=== PATIENT | female | born 1985 | race Caucasian/White ===

== ENCOUNTER → 2016-10-06 | Outpatient (CLI) | payer BC ==
[2016-10-06 13:23] LABS: CH 32.6; CHCM 34.6; HCT 36.2 % (34.0-46.0); HDW 2.68; HGB 12.9 gm/dL (11.4-16.0); MCH 33.8 pg (25.0-35.0); MCHC 35.7 g/dL (31.0-37.0); MCV 94.9 fL (80.0-100.0); Mean Platelet Volume 7.2; RBC 3.81 m/uL (3.80-5.40); RDW 12.9 % (11.5-15.5); WBC 9.8 k/uL (3.8-10.6)
== END | disposition home or self-care (01) ==
LOC: LABWHC1 11:55
PROVIDERS: ATTEND Obstetrics & Gynecology
DX: Z34.02 Encounter for supervision of normal first pregnancy, second trimester (principal); Z3A.00 Weeks of gestation of pregnancy not specified
CPT/HCPCS: 36415; 82950; 85027

== ENCOUNTER → 2016-10-13 | Outpatient (CLI) | payer BC ==
[2016-10-13 12:17] LABS: Glucose 3 Hour, Gest 47 mg/dL
== END | disposition home or self-care (01) ==
LOC: LABWHC1 07:51
PROVIDERS: ATTEND Obstetrics & Gynecology
DX: O24.419 Gestational diabetes mellitus in pregnancy, unspecified control (principal); Z3A.00 Weeks of gestation of pregnancy not specified
CPT/HCPCS: 36415; 82951; 82952

== ENCOUNTER 2016-12-27 06:00 | Inpatient (IN) | payer BC ==
[2016-12-27] MEDS ORDERED: BUTORPHANOL 1 MG/ML 1 ML VIAL IV PRN (16:35)
[2016-12-27] MEDS ORDERED: DINOPROSTONE 10 MG INSERT.ER VAGINAL ONE (16:35)
[2016-12-27 16:58] VITALS: BMI 30.5
--- NOTE | 2016-12-27 17:36 | P.HPOB ---
History of Present Illness H&P Date: 12/27/16 Chief Complaint: Intrauterine growth restriction This patient is a pleasant 31-year-old 1 para 0 female estimated date of confinement 01/18/2017 estimated gestational age 37-0/7 weeks who presents to labor and delivery for induction of labor secondary to intrauterine growth restriction. Patient's history is such that she had a 12 week ultrasound that confirmed her due date. Patient had a 35 week ultrasound that showed severe growth restriction. Patient was referred to maternal- medicine and they recommended delivery at 37 weeks. Patient was a heavy tobacco user prior to in the first part of her approximately 2 packs per day but did reduce her use significantly. Apparently she did quit about 1 month ago. care otherwise has been uncomplicated. Review of Systems Constitutional: Denies chills, Denies fever Ears, nose, mouth and throat: Denies headache, Denies sore throat Cardiovascular: Denies chest pain, Denies shortness of breath Respiratory: Denies cough Gastrointestinal: Reports heartburn Genitourinary: Reports Menstruation: Reports amenorrhea Past Medical History Past Medical History: No Reported History Additional Past Medical History / Comment(s): Ovarian Cyst, Fibroid Tumor - Uterus History of Any Multi-Drug Resistant Organisms: None Reported Past Surgical History: Orthopedic Surgery Additional Past Surgical History / Comment(s): Left Knee Past Anesthesia/Blood Transfusion Reactions: No Reported Reaction Past Psychological History: Anxiety Smoking Status: Former smoker Past Alcohol Use History: None Reported, Rare Past Drug Use History: None Reported - Past Family History Father Family Medical History: No Reported History Medications and Allergies Home Medications Medication Instructions Recorded Confirmed Type Pnv No.95/Ferrous Fum/Folic AC 1 each PO DAILY 12/26/16 12/27/16 History [ Multivitamin Tablet] Allergies Allergy/AdvReac Type Severity Reaction Status Date / Time No Known Allergies Allergy Verified 12/27/16 16:35 Exam - Vital Signs Vital signs: Vital Signs Temp Pulse Resp BP Pulse Ox 12/27/16 16:35 97.6 F 93 16 139/81 97 Intake and Output 12/27/16 12/27/16 12/27/16 06:59 14:59 22:59 Other: Weight 75.75 kg Patient Weight 12/28/16 06:59 Weight 75.75 kg - OBG Physical Exam Abdomen: bowel sounds normal, no diffuse tenderness, no bruit present, no guarding noted, no hepatomegaly, no splenomegaly, no mass Vulva: both: normal Vagina: normal moisture, no discharge Cervix: Cervix is 1 cm and uneffaced. Uterus: enlarged (Fundal height is 36 cm) Results blood work is A positive, rubella immune, RPR nonreactive, HIV nonreactive, hepatitis B is negative, ultrasounds as above. Group B strep was positive. Glucola was abnormal with a normal three-hour gtt. Assessment and Plan (1) IUGR (intrauterine growth restriction) affecting care of mother Narrative/Plan: This patient is a pleasant 31-year-old 1 para 0 female 37-0/7 weeks gestation with severe intrauterine growth restriction. Recommendations per maternal medicine is to deliver at this time. Etiology is unknown all of the patient does have a history of heavy tobacco use. Plan is Cervidil induction of labor and anticipate vaginal delivery. Status: Acute (2) Group B streptococcal carriage complicating Status: Acute
[2016-12-28] MEDS ORDERED: TERBUTALINE 1 MG/ML VIAL SQ PRN (05:06)
[2016-12-28] MEDS ORDERED: OXYTOCIN 10 UNIT/ML 1 ML VIAL IM PRN (05:06)
[2016-12-28] MEDS ORDERED: CARBOPROST TROMETHAMINE 250 MCG/ML 1 ML AMP IM PRN (05:06)
[2016-12-28] MEDS ORDERED: AMPICILLIN 2,000 MG in SODIUM CHLORIDE 0.9% 100 ML IVPB STA (05:06)
[2016-12-28] MEDS ORDERED: LACTATED RINGERS 1,000 ML IV SCH (05:06)
[2016-12-28] MEDS ORDERED: METHYLERGONOVINE 0.2 MG/ML 1 ML AMP IM PRN (05:06)
[2016-12-28] MEDS ORDERED: LIDOCAINE 1% (PF) 10 MG/ML (30 ML SDV) SQ PRN (05:06)
[2016-12-28] MEDS ORDERED: OXYTOCIN 20 UNITS/1000 ML NS 1,000 ML IV SCH ×2 (05:06→13:15)
[2016-12-28 06:00] LABS: Basophils # (A) 0.1 k/uL (0-0.2); Basophils % (A) 0 %; CHCM 35.2; Eosinophils # (A) 0.2 k/uL (0-0.7); Eosinophils % (A) 2 %; HCT 40.9 % (34.0-46.0); HDW 2.67; HGB 13.7 gm/dL (11.4-16.0); Luc # (Auto) 0.14; Luc % (Auto) 1; Lymphocytes % (A) 28 %; MCH 32.5 pg (25.0-35.0); MCHC 33.4 g/dL (31.0-37.0); MCV 97.4 fL (80.0-100.0); Monocytes # (A) 0.6 k/uL (0-1.0); Monocytes % (A) 6 %; Neutrophils # (A) 6.7 k/uL (1.3-7.7); Neutrophils % (A) 63 %; RDW 14.1 % (11.5-15.5); WBC 10.8 k/uL (3.8-10.6)
--- NOTE | 2016-12-28 06:13 | P.PN ---
Progress Note - Text Patient's heart tones are reassuring. She is 2 cm dilated, artificial rupture membranes shows bloody clear fluid. Patient did have a low-lying placenta throughout the . Plan at this time is as long as the bleeding is not significant and heart tones are reassuring we'll continue with induction of labor. Patient understands if she has significant bleeding or concerns for heart tones were proceed with for delivery.
[2016-12-28] MEDS: AMPICILLIN 1,000 MG in SODIUM CHLORIDE 0.9% 50 ML IVPB SCH ×2 (09:51→20:40)
[2016-12-28] MEDS ORDERED: ceFAZolin 2 GM in SODIUM CHLORIDE 0.9% 100 ML IVPB ONE (12:14)
[2016-12-28] MEDS ORDERED: CITRIC ACID-SODIUM CITRATE 15 ML CUP PO ONE (12:14)
[2016-12-28] MEDS ORDERED: MORPHINE SULFATE (PF) 0.3 MG/0.3 ML SYR ONE (12:30)
[2016-12-28] MEDS ORDERED: OXYTOCIN 10 UNIT/ML 1 ML VIAL ONE (12:30)
[2016-12-28] MEDS ORDERED: ONDANSETRON 4 MG/2 ML VIAL ONE (12:30)
[2016-12-28] MEDS ORDERED: NALBUPHINE 10 MG/ML AMPUL ONE (12:30)
[2016-12-28] MEDS ORDERED: KETOROLAC 30 MG/ML 1 ML VIAL ONE (12:30)
[2016-12-28] MEDS ORDERED: MORPHINE SULFATE 4 MG/ML SYRINGE IVP PRN (13:06)
[2016-12-28] MEDS ORDERED: KETOROLAC 30 MG/ML 1 ML VIAL IVP PRN (13:06)
[2016-12-28] MEDS ORDERED: NALOXONE 0.4 MG/ML 1 ML VIAL IV PRN ×2 (13:06→13:12)
[2016-12-28] MEDS ORDERED: ONDANSETRON 4 MG/2 ML VIAL IVP PRN ×2 (13:06→13:12)
[2016-12-28] MEDS ORDERED: diphenhydrAMINE 50 MG/ML 1 ML VIAL IVP PRN ×2 (13:06→13:12)
[2016-12-28] MEDS ORDERED: Acetaminophen-Codeine 300-30mg TAB PO PRN (13:12)
[2016-12-28] MEDS ORDERED: diphenhydrAMINE 25 MG CAP PO PRN (13:12)
[2016-12-28] MEDS ORDERED: SIMETHICONE 80 MG CHEWABLE PO PRN (13:12)
[2016-12-28] MEDS ORDERED: ACETAMINOPHEN TAB 325 MG TAB PO PRN (13:12)
[2016-12-28] MEDS ORDERED: ZOLPIDEM 5 MG TAB PO PRN (13:12)
[2016-12-28] MEDS ORDERED: METOCLOPRAMIDE 5 MG/ML 2 ML VIAL IVP PRN (13:12)
--- NOTE | 2016-12-28 13:22 | P.OP ---
Date of Procedure: 12/28/16 Preoperative Diagnosis: #1: 37-0/7 weeks . #2: Intrauterine growth restriction. #3: Vaginal bleeding. #4: Gestational hypertension. #5: Failure to progress. Postoperative Diagnosis: #1: Same. #2: Low-lying anterior placenta Procedure(s) Performed: Primary low transverse section. Anesthesia: spinal Surgeon: Dany Spring Professor Of Political Science #1: Tera Jimenez Estimated Blood Loss (ml): 600 Pathology: other (Placenta) Condition: stable Disposition: floor Indications for Procedure: Please see dictated H&P for intimate details of this patient's admission. Brief summary this pleasant 31-year-old 1 para 0 female 37-0/7 weeks gestation who was admitted to labor and delivery last evening for two-stage induction of labor secondary to intrauterine growth restriction. Patient had a Cervidil placed this morning she is 2 cm dilated. Rupture of membranes showed bloody clear fluid. heart tones are reassuring. Patient is induced with Pitocin per protocol. Labor does not progress however the patient does develop continued bleeding and elevated blood pressures. This time I recommend proceed with delivery. Patient I did discuss the surgery and risks including risks of infection, bleeding, possible injury bowel, bladder, vessels, and other organs. Patient seems risks DVT and pulmonary embolism. All patient's questions are answered written consent is obtained. Operative Findings: This is a viable male Apgars are 9 and 9 delivery time was 1245 hrs. Infant has spontaneous respirations and good cry and grossly appeared normal did appear to intrauterine growth restricted. Was no evidence of a placenta previa however the placenta did extend low near the cervical opening. Description of Procedure: This patient has a Katz catheter placed to straight drain. She subsequently taken to the operating room where she sat up and spinal anesthetic is administered without incident. With an adequate level of anesthesia she has abdominal vaginal prep. Draped is placed. Scalpels then taken and a Pfannenstiel skin incision is then made. A second scalpel is taken down the fascia and the fascia scored with the scalpel. Fascial incision is then extended bilaterally using the German scissors. Fascia is dissected off the rectus muscles sharply. Rectus muscles are peritoneum identified and entered sharply. Peritoneal incision extended superior and inferior without difficulty. Bladder blade is placed. Bladder peritoneum was taken off the lower uterine segment sharply. Scalpels then taken and a low transverse uterine incision is made. Using a hemostat I gently into the uterine cavity and there is a placenta anteriorly. I do go through the placenta and finding infant's vertex. Vertex is then gently delivered through the incision with fundal pressure. Mouth and nares are bulb suctioned. There is a loop of cord near the 's neck is not a nuchal cord. We then deliver the rest this 's body and is a vigorous viable male Apgars are 9 and 9 delivery time is 1245 hrs. After delivery of the the umbilical cord is doubly clamped and cut appears to be trivascular. Placenta is then manually extracted. Does appear quite ready. Placenta is also small. This is sent off to pathology. With this done the uterus is then externalized and uterine incision demarcated with Ghosh clamps. Uterine incision closed in 0 Vicryl running locked fashion 2 layers. Excellent hemostasis is noted. Bladder peritoneum was then closed using a 3-0 Vicryl. Excess fluid is removed from the abdomen and pelvis. Uterus placed back into the abdomen. Parietal peritoneum was then closed using 0 Vicryl running fashion. Fascial incision is then reapproximated in 0 Vicryl interrupted fashion. The rectus muscles were reapproximated using 0 Vicryl interrupted fashion. Subcutaneous tissues reapproximated using a 3-0 Vicryl. Skin is reapproximated using naomi. Sterile dressing is applied. All counts are correct 3. There are no complications. Others taken to her birthing suite and subsequently taken to the nursery for evaluation.
[2016-12-28 14:02] LABS: Basophils % (A) 0 %; CH 33.8; CHCM 34.7; Eosinophils # (A) 0.1 k/uL (0-0.7); Eosinophils % (A) 1 %; HCT 36.5 % (34.0-46.0); HDW 2.64; HGB 11.9 gm/dL (11.4-16.0); Luc # (Auto) 0.06; Luc % (Auto) 1; Lymphocytes # (A) 1.5 k/uL (1.0-4.8); Lymphocytes % (A) 17 %; MCHC 32.7 g/dL (31.0-37.0); Mean Platelet Volume 9.2; Monocytes # (A) 0.4 k/uL (0-1.0); Monocytes % (A) 5 %; Neutrophils # (A) 6.8 k/uL (1.3-7.7); Neutrophils % (A) 76 %; RBC 3.73 m/uL (3.80-5.40); RDW 14.1 % (11.5-15.5); WBC 8.9 k/uL (3.8-10.6)
[2016-12-28 14:16] LABS: Total Bilirubin 0.2 mg/dL (0.2-1.3); Total Protein 5.1 g/dL (6.3-8.2)
[2016-12-28] MEDS: LACTATED RINGERS 1,000 ML IV SCH ×2 (16:30→21:56)
[2016-12-28] MEDS: MORPHINE SULFATE 4 MG/ML SYRINGE IVP PRN ×2 (16:30→23:08)
[2016-12-28] MEDS ORDERED: LABETALOL 100 MG TAB PO PRN (16:37)
[2016-12-28] MEDS: SENNOSIDES-DOCUSATE SODIUM 1 EACH TAB PO SCH (20:41)
[2016-12-28] MEDS: ceFAZolin 2 GM in SODIUM CHLORIDE 0.9% 100 ML IVPB SCH (20:41)
[2016-12-29] MEDS: ceFAZolin 2 GM in SODIUM CHLORIDE 0.9% 100 ML IVPB SCH (03:22)
--- NOTE | 2016-12-29 06:10 | P.PNOBGPC ---
Subjective - Subjective Patient reports: Reports appetite normal, Reports voiding normally, Reports pain well controlled, Reports ambulating normally : doing well Objective - Vital Signs Latest vital signs: Vital Signs Temp Pulse Pulse Resp BP Pulse Ox 12/29/16 04:00 98.4 F 70 16 146/85 12/29/16 00:00 98.3 F 90 18 130/75 12/28/16 20:00 98.1 F 90 18 153/92 12/28/16 18:06 99 12/28/16 15:14 97.3 F L 76 18 147/76 99 12/28/16 14:39 84 16 135/70 12/28/16 14:14 80 16 146/74 97 12/28/16 14:06 97 12/28/16 13:58 83 16 133/78 99 12/28/16 13:41 97 16 132/77 98 12/28/16 13:24 98 16 141/79 97 12/28/16 13:09 96.7 F L 88 18 135/76 99 12/28/16 13:06 99 Intake and Output 12/28/16 12/28/16 12/29/16 14:59 22:59 06:59 Intake Total 30 Output Total 1200 2350 Balance 30 -1200 -2350 Intake: Oral 30 Output: Urine 1200 2350 Other: # Voids 2 - Exam Lungs: bilateral: normal Chest: Normal S1, Normal S2 Extremities: Present: normal Abdomen: Present: normal appearance, soft. Absent: distention, tenderness Incision: Present: normal, dry, intact Uterus: Present: normal, firm - Labs Labs: Abnormal Lab Results - Last 24 Hours (Table) 12/28/16 12/28/16 Range/Units 13:50 13:50 RBC 3.73 L (3.80-5.40) m/uL Total Protein 5.1 L (6.3-8.2) g/dL Albumin 2.6 L (3.5-5.0) g/dL Assessment and Plan (1) IUGR (intrauterine growth restriction) affecting care of mother Narrative/Plan: Post operative day #1. Patient is resting without new complaints. Vital signs are stable. Blood pressures are mildly elevated but nothing requiring treatment. Uterus is firm nontender she's having normal lochia. Her incision is intact and dry. I did repeat preeclampsia blood work yesterday and it was normal. My impression is that this is a normal postoperative course. She does appear to have some mild gestational hypertension which has not requiring treatment at this time. Plan at this time is to check a CBC, advanced to regular diet, allow the patient to shower, and continue routine postoperative care. Current Visit: Yes Status: Acute Code(s): O36.5990 - MATERN CARE FOR OTH OR SUSP POOR FETL GRTH, UNSP TRI, UNSP SNOMED Code(s): 272732200 (2) Group B streptococcal carriage complicating Current Visit: Yes Status: Acute Code(s): O99.820 - STREPTOCOCCUS B CARRIER STATE COMPLICATING SNOMED Code(s): 888147578419724
[2016-12-29] MEDS: IBUPROFEN 600 MG TAB PO PRN ×2 (07:52→18:46)
[2016-12-29] MEDS: SENNOSIDES-DOCUSATE SODIUM 1 EACH TAB PO SCH ×2 (07:53→19:59)
--- NOTE | 2016-12-29 08:00 | P.PN ---
Progress Note - Text Date: 12/29/2016 Time: 706 The patient is status post section Vital signs stable VAS: 0-10 Patient has no complaints of pain. The patient incurred some minimal itching yesterday, this itching is now subsiding. Pain meds to be managed by service.
[2016-12-29 08:30] LABS: Basophils % (A) 0 %; CH 33.1; CHCM 33.4; Eosinophils # (A) 0.2 k/uL (0-0.7); Eosinophils % (A) 2 %; HCT 36.3 % (34.0-46.0); HDW 2.63; HGB 12.1 gm/dL (11.4-16.0); Luc % (Auto) 1; Lymphocytes # (A) 1.3 k/uL (1.0-4.8); Lymphocytes % (A) 14 %; MCH 33.2 pg (25.0-35.0); MCHC 33.3 g/dL (31.0-37.0); MCV 99.7 fL (80.0-100.0); Mean Platelet Volume 7.9; Monocytes # (A) 0.3 k/uL (0-1.0); Monocytes % (A) 3 %; Neutrophils # (A) 7.9 k/uL (1.3-7.7); Neutrophils % (A) 80 %; RBC 3.64 m/uL (3.80-5.40); RDW 13.6 % (11.5-15.5); WBC 9.8 k/uL (3.8-10.6); WBC (Perox) 9.83
[2016-12-29] MEDS: Acetaminophen-Codeine 300-30mg TAB PO PRN ×2 (14:10→20:46)
[2016-12-29] MEDS: LACTATED RINGERS 1,000 ML IV SCH ×2 (20:28→20:29)
[2016-12-30] MEDS: Acetaminophen-Codeine 300-30mg TAB PO PRN ×2 (04:09→20:50)
--- NOTE | 2016-12-30 06:08 | P.PNOBGPC ---
Subjective - Subjective Patient reports: Reports appetite normal, Reports voiding normally, Reports pain well controlled, Reports ambulating normally : doing well Objective - Vital Signs Latest vital signs: Vital Signs Temp Pulse Resp BP Pulse Ox 12/30/16 00:00 98.5 F 90 18 145/78 100 12/29/16 16:00 97.7 F 84 18 149/77 12/29/16 12:00 98.6 F 90 18 149/82 12/29/16 08:00 98.3 F 94 18 128/74 - Exam Lungs: bilateral: normal Chest: Normal S1, Normal S2 Extremities: Present: normal Abdomen: Present: normal appearance, soft. Absent: distention, tenderness Incision: Present: normal, dry, intact Uterus: Present: normal, firm - Labs Labs: Abnormal Lab Results - Last 24 Hours (Table) 12/29/16 Range/Units 08:12 RBC 3.64 L (3.80-5.40) m/uL Neutrophils # 7.9 H (1.3-7.7) k/uL Assessment and Plan (1) IUGR (intrauterine growth restriction) affecting care of mother Narrative/Plan: Post operative day #2. Patient is resting without new complaints. Blood pressures 140s over 70s. Uterus is firm nontender her incision is intact and dry. Patient's having normal lochia. My impression is this is a normal post operative course. Blood pressures remained mildly elevated but not at a level that need to be treated. I'm going to continue to watch her today most likely discharge home tomorrow. Current Visit: Yes Status: Acute Code(s): O36.5990 - MATERN CARE FOR OTH OR SUSP POOR FETL GRTH, UNSP TRI, UNSP SNOMED Code(s): 334540649 (2) Group B streptococcal carriage complicating Current Visit: Yes Status: Acute Code(s): O99.820 - STREPTOCOCCUS B CARRIER STATE COMPLICATING SNOMED Code(s): 250232621832962
[2016-12-30] MEDS: IBUPROFEN 600 MG TAB PO PRN ×3 (08:22→22:30)
[2016-12-30] MEDS: SENNOSIDES-DOCUSATE SODIUM 1 EACH TAB PO SCH ×2 (08:26→20:49)
[2016-12-30 09:06] VITALS: RESP 16
[2016-12-31] MEDS: IBUPROFEN 600 MG TAB PO PRN (03:58)
--- NOTE | 2016-12-31 07:02 | P.PNOBGPC ---
Subjective - Subjective Patient reports: Reports appetite normal, Reports voiding normally, Reports pain well controlled, Reports ambulating normally : doing well Objective - Vital Signs Latest vital signs: Vital Signs Temp Pulse Pulse Resp BP 12/31/16 00:00 98.3 F 97 16 156/85 12/30/16 16:00 98.2 F 94 16 146/81 12/30/16 08:00 98.7 F 99 108 H 16 144/76 - Exam Lungs: bilateral: normal Chest: Normal S1, Normal S2 Extremities: Present: normal Abdomen: Present: normal appearance, soft. Absent: distention, tenderness Incision: Present: normal, dry, intact Uterus: Present: normal, firm Assessment and Plan (1) IUGR (intrauterine growth restriction) affecting care of mother Narrative/Plan: Post operative day #3. Patient is resting without new complaints. Blood pressures running 140s over 70s occasionally 150 over 80s. Patient does not have any symptomatology including headaches etc. Patient is tolerating regular diet, urinating, ambulating without difficulty. My impression is a normal postoperative course. She does have a mild gestational hypertension which is asymptomatic at this time and does not require treatment. Plan is to discharge home today and I'll see her back within 1 week for repeat blood pressure and incision check. Patient is given instructions as to reasons to call. Current Visit: Yes Status: Acute Code(s): O36.5990 - MATERN CARE FOR OTH OR SUSP POOR FETL GRTH, UNSP TRI, UNSP SNOMED Code(s): 489718932 (2) Group B streptococcal carriage complicating Current Visit: Yes Status: Acute Code(s): O99.820 - STREPTOCOCCUS B CARRIER STATE COMPLICATING SNOMED Code(s): 749212258189584
--- NOTE | 2016-12-31 07:05 | P.DS ---
Providers Date of admission: 12/27/16 16:33 Expected date of discharge: 12/31/16 Attending physician: Dany Spring Primary care physician: Stated None - Discharge Diagnosis(es) (1) IUGR (intrauterine growth restriction) affecting care of mother Current Visit: Yes Status: Acute (2) Group B streptococcal carriage complicating Current Visit: Yes Status: Acute Hospital Course: Please see dictated H&P for intimate details of this patient's admission. Brief summary this is a pleasant 31-year-old 1 para 0 female admitted to labor and delivery at 37 weeks for induction secondary to severe IUGR. Patient is admitted and subsequent undergoes a primary low transverse section for failed progress, vaginal bleeding, and hypertension. Patient did have some elevated blood pressures and preeclampsia evaluation was negative. She never did require any medications however continue to have blood pressures 140 150/70 to 80s. On postoperative 3 patient's felt be stable for discharge home follow up with me in 1 week. Procedures: Induction of labor and primary low transverse section. Patient Condition at Discharge: Good Plan - Discharge Summary New Discharge Prescriptions: New Acetaminophen-Codeine 300-30mg [Tylenol w/codeine #3] 1 - 2 each PO Q4HR PRN #30 tab PRN Reason: Mild Pain Ibuprofen [Motrin] 600 mg PO Q6HR PRN #40 tab PRN Reason: Mild Pain Or Fever >= 100.5 No Action Pnv No.95/Ferrous Fum/Folic AC [ Multivitamin Tablet] 1 each PO DAILY Discharge Medication List Pnv No.95/Ferrous Fum/Folic AC [ Multivitamin Tablet] 1 each PO DAILY [History] Acetaminophen-Codeine 300-30mg [Tylenol w/codeine #3] 1 - 2 each PO Q4HR PRN # 30 tab 12/30/16 [Rx] Ibuprofen [Motrin] 600 mg PO Q6HR PRN #40 tab 12/30/16 [Rx] Follow up Appointment(s)/Referral(s): Dany Spring MD [STAFF PHYSICIAN] - 01/05/17 8:45 am (Patient also has a post visit on February 09 at 9:15 AM.) Patient Instructions/Handouts: (DC) Activity/Diet/Wound Care/Special Instructions: No heavy lifting or strenuous activity for 6 weeks. No intercourse or anything per vagina for 6 weeks. Please call if any fever, chills, excessive vaginal bleeding, and/or abdominal pain. Discharge Disposition: HOME SELF-CARE
[2016-12-31] MEDS: SENNOSIDES-DOCUSATE SODIUM 1 EACH TAB PO SCH (08:14)
[2016-12-31] MEDS: Acetaminophen-Codeine 300-30mg TAB PO PRN (08:18)
[2016-12-31 09:16] VITALS: BP 155/97; PULSE 103; TEMP 97.2
== END 2016-12-31 13:15 | disposition home or self-care (01) | DRG 765 ==
LOC: 4FBP 16:33
PROVIDERS: ADMIT Obstetrics & Gynecology; ATTEND Obstetrics & Gynecology
PROC: 3E0P7GC Introduction of Other Therapeutic Substance into Female Reproductive, Via Natural or Artificial Opening (ICD-10-PCS; principal; 2016-12-27)
PROC: 10907ZC Drainage of Amniotic Fluid, Therapeutic from Products of Conception, Via Natural or Artificial Opening (ICD-10-PCS; principal; 2016-12-27)
PROC: 3E033VJ Introduction of Other Hormone into Peripheral Vein, Percutaneous Approach (ICD-10-PCS; principal; 2016-12-27)
PROC: 10D00Z1 Extraction of Products of Conception, Low, Open Approach (ICD-10-PCS; 2016-12-28)
DX: O36.5930 Maternal care for other known or suspected poor fetal growth, third trimester, not applicable or unspecified (principal); O44.43 Low lying placenta NOS or without hemorrhage, third trimester; O99.824 Streptococcus B carrier state complicating childbirth; Z37.0 Single live birth; Z87.891 Personal history of nicotine dependence; Z3A.37 37 weeks gestation of pregnancy; O62.2 Other uterine inertia; R03.0 Elevated blood-pressure reading, without diagnosis of hypertension
CPT/HCPCS: 59025; 80076; 81001; 82565; 83615; 84450; 84460; 84520; 84550; 85025; 85610; 85730; 86850; 86900; 86901; 88307

== ENCOUNTER → 2020-01-02 | Outpatient (CLI) | payer OTHER ==
--- NOTE | 2020-01-02 12:39 | XR ---
EXAMINATION TYPE: XR facial bones complete DATE OF EXAM: 01/02/2020 COMPARISON: NONE HISTORY: Pain TECHNIQUE: 3 views submitted FINDINGS: Osseous structures intact. Mild mucosal thickening in the paranasal sinuses. No air-fluid l evels. No acute displaced fracture. IMPRESSION: 1. Mild chronic sinusitis with no acute displaced fracture. If symptoms persist consider CT scan.
== END | disposition home or self-care (01) ==
LOC: RADXRMAIN 12:17
PROVIDERS: ATTEND Internal Medicine
DX: J32.9 Chronic sinusitis, unspecified (principal)
CPT/HCPCS: 70150

== ENCOUNTER 2021-02-17 11:18 | Emergency (ER) | payer OTHER ==
[2021-02-17 12:16] VITALS: TEMP 99.2
--- NOTE | 2021-02-17 14:00 | ED ---
General Adult HPI - General Chief complaint: Recheck/Abnormal Lab/Rx Stated complaint: High BP Time Seen by Provider: 02/17/21 13:00 Source: patient, RN notes reviewed, old records reviewed Mode of arrival: ambulatory Limitations: no limitations - History of Present Illness Initial comments: This is a 36-year-old female who presents today from the primary medical care doctor's office for high blood pressure. Patient states she took today because she had some tingling in her left hand which is no longer there and it was elevated and she took a few more times and continued to be elevated so she went to the primary medical care doctor's office. She states they took her blood pressure and sent her into the emergency department but she does not know what her pressure was there. Patient denies any chest pain shortness of breath or palpitations. Patient states she did feel little tired this morning and a little lightheaded but those resolved. Patient also stated she had a headache that was slight this morning she took Aleve and now it's gone. - Related Data Previous Rx's Medication Instructions Recorded amLODIPine [Norvasc] 2.5 mg PO DAILY #10 tablet 02/17/21 Allergies Allergy/AdvReac Type Severity Reaction Status Date / Time No Known Allergies Allergy Verified 02/17/21 14:30 Review of Systems ROS Statement: Those systems with pertinent positive or pertinent negative responses have been documented in the HPI. ROS Other: All systems not noted in ROS Statement are negative. Past Medical History Past Medical History: No Reported History Additional Past Medical History / Comment(s): Ovarian Cyst, Fibroid Tumor - Uterus History of Any Multi-Drug Resistant Organisms: None Reported Past Surgical History: Orthopedic Surgery Additional Past Surgical History / Comment(s): Left Knee Past Anesthesia/Blood Transfusion Reactions: No Reported Reaction Past Psychological History: Anxiety Smoking Status: Current every day smoker Past Alcohol Use History: Rare Past Drug Use History: Marijuana - Past Family History Father Family Medical History: No Reported History General Exam - General Exam Comments Initial Comments: GENERAL: Patient is well-developed and well-nourished. Patient is nontoxic and well- hydrated and is in no acute distress. ENT: Neck is soft and supple. No significant lymphadenopathy is noted. Oropharynx is clear. Moist mucous membranes. Neck has full range of motion without eliciting any pain. EYES: The sclera were anicteric and conjunctiva were pink and moist. Extraocular movements were intact and pupils were equal round and reactive to light. Eyelids were unremarkable. PULMONARY: Unlabored respirations. Good breath sounds bilaterally. No audible rales rhonchi or wheezing was noted. CARDIOVASCULAR: There is a regular rate and rhythm without any murmurs gallops or rubs. ABDOMEN: Soft and nontender with normal bowel sounds. No palpable organomegaly was noted. There is no palpable pulsatile mass. SKIN: Skin is clear with no lesions or rashes and otherwise unremarkable. NEUROLOGIC: Patient is alert and oriented x3. Cranial nerves II through XII are grossly intact. Motor and sensory are also intact. Normal speech, volume and content. Symmetrical smile. MUSCULOSKELETAL: Normal extremities with adequate strength and full range of motion. No lower extremity swelling or edema. No calf tenderness. LYMPHATICS: No significant lymphadenopathy is noted PSYCHIATRIC: Normal psychiatric evaluation. Limitations: no limitations Course Vital Signs 02/17/21 02/17/21 02/17/21 12:12 13:45 14:09 Temperature 99.2 F Pulse Rate 89 79 92 Respiratory 20 18 18 Rate Blood Pressure 175/96 139/92 155/107 O2 Sat by Pulse 99 95 96 Oximetry 02/17/21 14:12 Temperature Pulse Rate 76 Respiratory 18 Rate Blood Pressure 133/85 O2 Sat by Pulse 98 Oximetry Medical Decision Making - Medical Decision Making EKG shows normal sinus rhythm at 72 bpm HI interval 256 QRS is 82 QT interval 396 QTC is 433. Patient's EKG shows no ST segment elevation or depression Patient's blood pressure was moderate in the emergency department and it was relatively normal. Patient remained asymptomatic. Patient will follow-up with her primary medical care doctor and document daily blood pressures - Lab Data Result diagrams: 02/17/21 14:06 02/17/21 14:06 Lab Results 02/17/21 02/17/21 02/17/21 Range/Units 14:06 14:06 14:06 WBC 8.5 (3.8-10.6) k/uL RBC 4.78 (3.80-5.40) m/uL Hgb 15.3 (11.4-16.0) gm/dL Hct 42.8 (34.0-46.0) % MCV 89.7 (80.0-100.0) fL MCH 32.1 (25.0-35.0) pg MCHC 35.8 (31.0-37.0) g/dL RDW 13.5 (11.5-15.5) % Plt Count 366 (150-450) k/uL MPV 8.1 Neutrophils % 65 % Lymphocytes % 27 % Monocytes % 4 % Eosinophils % 2 % Basophils % 1 % Neutrophils # 5.6 (1.3-7.7) k/uL Lymphocytes # 2.3 (1.0-4.8) k/uL Monocytes # 0.4 (0-1.0) k/uL Eosinophils # 0.2 (0-0.7) k/uL Basophils # 0.1 (0-0.2) k/uL Sodium 137 (137-145) mmol/L Potassium 4.1 (3.5-5.1) mmol/L Chloride 109 H (98-107) mmol/L Carbon Dioxide 19 L (22-30) mmol/L Anion Gap 9 mmol/L BUN 10 (7-17) mg/dL Creatinine 0.64 (0.52-1.04) mg/dL Est GFR (CKD-EPI)AfAm >90 (>60 ml/min/1.73 sqM) Est GFR (CKD-EPI)NonAf >90 (>60 ml/min/1.73 sqM) Glucose 81 (74-99) mg/dL Calcium 9.3 (8.4-10.2) mg/dL Total Bilirubin 0.5 (0.2-1.3) mg/dL AST 18 (14-36) U/L ALT 10 (4-34) U/L Alkaline Phosphatase 99 (38-126) U/L Troponin I <0.012 (0.000-0.034) ng/mL Total Protein 7.3 (6.3-8.2) g/dL Albumin 4.1 (3.5-5.0) g/dL Disposition Clinical Impression: Hypertensive urgency Disposition: HOME SELF-CARE Condition: Good Instructions (If sedation given, give patient instructions): Hypertension (ED) Additional Instructions: Patient should take her Norvasc if her blood pressure systolically above 160 and oriented times talk is about 90 Prescriptions: amLODIPine [Norvasc] 2.5 mg PO DAILY #10 tablet Is patient prescribed a controlled substance at d/c from ED?: No Referrals: Connie Wheat MD [Primary Care Provider] - 1-2 days Time of Disposition: 15:00
[2021-02-17 14:10] VITALS: RESP 18
[2021-02-17 14:34] LABS: ALT 10 U/L (4-34); AST 18 U/L (14-36); African American GFR (CKD) >90 (>60 ml/min/1.73 sqM); Albumin 4.1 g/dL (3.5-5.0); Alkaline Phosphatase 99 U/L (38-126); Anion Gap 9 mmol/L; Blood Urea Nitrogen 10 mg/dL (7-17); Calcium 9.3 mg/dL (8.4-10.2); Carbon Dioxide 19 mmol/L (22-30); Chloride 109 mmol/L (98-107); Glucose 81 mg/dL (74-99); Non-African American GFR(CKD) >90 (>60 ml/min/1.73 sqM); Potassium 4.1 mmol/L (3.5-5.1); Sodium 137 mmol/L (137-145); Total Bilirubin 0.5 mg/dL (0.2-1.3); Total Protein 7.3 g/dL (6.3-8.2)
[2021-02-17 14:37] LABS: Basophils # (A) 0.1 k/uL (0-0.2); Basophils % (A) 1 %; Eosinophils # (A) 0.2 k/uL (0-0.7); Eosinophils % (A) 2 %; HCT 42.8 % (34.0-46.0); HGB 15.3 gm/dL (11.4-16.0); Lymphocytes # (A) 2.3 k/uL (1.0-4.8); Lymphocytes % (A) 27 %; MCH 32.1 pg (25.0-35.0); MCHC 35.8 g/dL (31.0-37.0); MCV 89.7 fL (80.0-100.0); Mean Platelet Volume 8.1; Monocytes # (A) 0.4 k/uL (0-1.0); Monocytes % (A) 4 %; Neutrophils # (A) 5.6 k/uL (1.3-7.7); Neutrophils % (A) 65 %; Platelet Count 366 k/uL (150-450); RBC 4.78 m/uL (3.80-5.40); RDW 13.5 % (11.5-15.5); WBC 8.5 k/uL (3.8-10.6)
[2021-02-17 15:38] VITALS: BP 127/98; PULSE 85
== END 2021-02-17 15:32 | disposition home or self-care (01) ==
LOC: EC 11:18
DX: I16.0 Hypertensive urgency (principal); F41.9 Anxiety disorder, unspecified; F17.200 Nicotine dependence, unspecified, uncomplicated; F12.90 Cannabis use, unspecified, uncomplicated
CPT/HCPCS: 36415; 80053; 84484; 85025; 93005; 99284

== ENCOUNTER → 2021-02-22 | Outpatient (CLI) | payer OTHER ==
--- NOTE | 2021-02-22 12:49 | XR ---
EXAMINATION TYPE: XR chest 2V DATE OF EXAM: 02/22/2021 COMPARISON: NONE HISTORY: cough TECHNIQUE: Frontal and lateral views of the chest are obtained. FINDINGS: There is no focal air space opacity, pleural effusion, or pneumothorax seen. The cardiac silhouette size is within normal limits. Prominent lung volumes may be seen with COPD. There is bronc hial wall thickening. The osseous structures are intact, slight spinal curvature. IMPRESSION: Correlate for bronchitis
== END | disposition home or self-care (01) ==
LOC: RADXRYALE 11:52
PROVIDERS: ATTEND Internal Medicine
DX: R91.8 Other nonspecific abnormal finding of lung field (principal)
CPT/HCPCS: 71046

== ENCOUNTER → 2022-06-15 | Outpatient (CLI) | payer OTHER ==
--- NOTE | 2022-06-15 11:42 | US ---
EXAMINATION TYPE: US axilla RT DATE OF EXAM: 06/15/2022 COMPARISON: NONE CLINICAL HISTORY: 37-year-old female R22.31 SWELLING, MASS, LUMP. Right axilla palpable lump x 3 days TECHNIQUE: Scanned right axilla at patient's area of concern FINDINGS: Java Software Architect notes: - no mass or enlarged lymph node seen IMPRESSION: No discrete sonographic abnormality or lymphadenopathy in the right axilla. Clinical foll ow-up of any suspicious palpable areas.
== END | disposition home or self-care (01) ==
LOC: RADUSWWP 10:35
PROVIDERS: ATTEND Internal Medicine
DX: R22.31 Localized swelling, mass and lump, right upper limb (principal); R22.2 Localized swelling, mass and lump, trunk

== ENCOUNTER → 2022-08-15 | Outpatient (CLI) | payer OTHER ==
[~2022-08-15] MED LIST: BETAMET ACET-BETAMETH SOD PHOS 6 MG/ML MDV IM SCH
[2022-08-15 12:18] LABS: Basophils % (A) 0 %; Eosinophils # (A) 0.3 k/uL (0-0.7); Eosinophils % (A) 3 %; HCT 37.2 % (34.0-46.0); HGB 12.6 gm/dL (11.4-16.0); Lymphocytes # (A) 2.4 k/uL (1.0-4.8); Lymphocytes % (A) 20 %; MCH 31.6 pg (25.0-35.0); MCHC 33.9 g/dL (31.0-37.0); Mean Platelet Volume 8.8; Monocytes # (A) 0.5 k/uL (0-1.0); Monocytes % (A) 4 %; Neutrophils # (A) 8.8 k/uL (1.3-7.7); Neutrophils % (A) 72 %; Platelet Count 304 k/uL (150-450); RDW 13.5 % (11.5-15.5); WBC 12.3 k/uL (3.8-10.6)
[2022-08-15 12:26] LABS: ALT 19 U/L (4-34); AST 29 U/L (14-36); African American GFR (CKD) >90 (>60 ml/min/1.73 sqM); Blood Urea Nitrogen 8 mg/dL (7-17); LDH 153 U/L (120-246); Non-African American GFR(CKD) >90 (>60 ml/min/1.73 sqM)
[2022-08-15 13:06] VITALS: BP 133/93; PULSE 107; RESP 18; TEMP 97.8
[2022-08-15 13:24] LABS: Appearance,Urine Clear (Clear); Bacteria,Urine Moderate /hpf; Bilirubin,Urine Negative (Negative); Blood,Urine Negative (Negative); Color,Urine Yellow; Glucose,Urine (UA) Negative (Negative); Ketones,Urine Negative (Negative); Leukocyte Esterase,Urine Small (Negative); Mucus,Urine Rare /hpf; Nitrite,Urine Positive (Negative); PH, Urine 6.5 (5.0-8.0); Protein,Urine Negative (Negative); RBC,Urine <1 /hpf (0-5); Specific Gravity,Urine 1.013 (1.001-1.035); Squamous Epithelial Cell,Urine 2 /hpf (0-4); Urobilinogen,Urine <2.0 mg/dL (<2.0); WBC,Urine 3 /hpf (0-5)
[2022-08-15 13:32] LABS: Creatinine,Urine Random 77.4 mg/dL; Protein/Creatinine Ratio,Urine 0.103
--- NOTE | 2022-08-15 17:59 | P.MSEPDOC ---
Presenting Problems - Arrival Data Date of Arrival on Unit: 08/15/22 Time of Arrival on Unit: 11:42 Mode of Transport: Ambulatory - Complaint OB-Reason for Admission/Chief Complaint: PIH Medical History - Information : 2 Para: 1 Number of Living Children: 1 - Gestational Age Gestational Age by SLOANE (wks/days): 33 Weeks and 6 Days - History Complications: Prior , Smoker Review of Systems - Review of Systems Constitutional: No problems Breast: No problems ENT: No problems Cardiovascular: No problems Respiratory: No problems Gastrointestinal: No problems Genitourinary: No problems Musculoskeletal: No problems Neurological: No problems Skin: No problems Vital Signs - Temperature Temperature: 97.8 F Temperature Source: Temporal Artery Scan - Pulse Right Pulse Oximetery Pulse Rate: 107 Pulse Assessment Method: Pulse Oximetry - Respirations Respiratory Rate: 18 Oxygen Delivery Method: Room Air O2 Sat by Pulse Oximetry: 99 - Blood Pressure Right Arm Blood Pressure: 133/93 Blood Pressure Mean: 106 Blood Pressure Source: Automatic Cuff Medical Screen Scoring - Uterine Contractions Frequency From (mins): 0 Frequency To (mins): 0 - Assessment - Baby A Baseline FHR: 135 Heart Rate - NICHD Category: Category I (Normal) NST: Reactive Physician Notification - Physician Notified Physician Notified Date: 08/15/22 Physician Notified Time: 11:42 Physician: Dany Spring Order Received: Yes ( called prior to pt arrival with orders.) Maternal Triage Index - Maternal Triage Index Presenting for scheduled procedure w/no complaint: No - Stat/Priority 1 Stat Priority 1: No - Urgent/Priority 2 Urgent Priority 2: No - Prompt/Priority 3 Prompt Priority 3: Yes Criteria Met for Priority 3: BP 133/93 Disposition - Disposition OB Disposition: Discharge to home Discharge Date: 08/15/22 Discharge Time: 13:00 I agree with the RN Medical Screening Exam: Yes Case reviewed; plan agreed upon as documented in EMR&OBIX.: Yes Diagnosis: GESTATIONAL HTN W/O SIGNIFICANT PROTEINURIA, THIRD TRIMESTER (This patient is a pleasant 37-year-old 2 para 1 female 33-6/7 weeks gestation who is admitted for my office for evaluation of hypertension. Patient's is also complicated by intrauterine growth restriction is being followed closely by myself and maternal- medicine. On admission patient has some mild blood pressure elevations and preeclampsia labs are normal. She is given a dose of Celestone and monitoring shows a category 1 heart tones. I discussed the patient's clinical condition with maternal- medicine and plan at this time is to have her return in 24 hours for repeat blood pressure and repeat Celestone injection. If her blood pressure remains mild without symptoms, and she'll follow-up with maternal- medicine on for her appointment for biophysical profile and repeat growth ultrasound. Patient is given strict instructions to call she had any signs or symptoms of preeclampsia or other concerns.)
== END ==
LOC: FBPOP 11:42
PROVIDERS: ATTEND Obstetrics & Gynecology
DX: O13.3 Gestational [pregnancy-induced] hypertension without significant proteinuria, third trimester (principal); O34.219 Maternal care for unspecified type scar from previous cesarean delivery; Z3A.33 33 weeks gestation of pregnancy; Z87.891 Personal history of nicotine dependence
CPT/HCPCS: 59025; 96372; 82570; 84156; 82565; 83615; 84450; 84460; 84520; 84550; 85025; 81001; J0702

== ENCOUNTER 2022-08-16 11:50 | Outpatient (CLI) | payer OTHER ==
[2022-08-16] MEDS ORDERED: BETAMET ACET-BETAMETH SOD PHOS 6 MG/ML MDV IM ONE (12:30)
[2022-08-16 12:57] VITALS: BP 149/95; PULSE 117; RESP 16; TEMP 98.3
--- NOTE | 2022-08-18 08:34 | P.MSEPDOC ---
Presenting Problems - Arrival Data Date of Arrival on Unit: 08/16/22 Time of Arrival on Unit: 11:50 Mode of Transport: Ambulatory - Complaint OB-Reason for Admission/Chief Complaint: Celestone Injection, Elevated Blood Pressure Medical History - Information : 2 Para: 1 Term: 1 : 0 Abortions: Spontaneous or Elective: 0 Number of Living Children: 1 - Gestational Age Gestational Age by SLOANE (wks/days): 34 Weeks and 0 Days - History Complications: Prior Review of Systems - Review of Systems Constitutional: No problems Breast: No problems ENT: No problems Cardiovascular: No problems Respiratory: No problems Gastrointestinal: No problems Genitourinary: No problems Musculoskeletal: No problems Neurological: No problems Skin: No problems Vital Signs - Temperature Temperature: 98.3 F Temperature Source: Temporal Artery Scan - Pulse Right Sitting Pulse Rate: 117 Pulse Assessment Method: Automatic Cuff - Respirations Respiratory Rate: 16 Oxygen Delivery Method: Room Air O2 Sat by Pulse Oximetry: 98 - Blood Pressure Right Arm Blood Pressure: 149/95 Blood Pressure Mean: 113 Blood Pressure Source: Automatic Cuff Medical Screen Scoring - Assessment - Baby A Baseline FHR: 125 Heart Rate - NICHD Category: Category I (Normal) NST: Reactive Physician Notification - Physician Notified Physician Notified Date: 08/16/22 Physician Notified Time: 12:37 Physician: Jacike Landaverde Order Received: Yes (d/c home) Maternal Triage Index - Prompt/Priority 3 Prompt Priority 3: Yes Criteria Met for Priority 3: bps 150's/90's, pih eval done yesterday, pt here for second celestone and bps, reactive nst, all bps <160/110, pt asymptomatic for preeclampsia Disposition - Disposition OB Disposition: Discharge to home Discharge Date: 08/16/22 Discharge Time: 12:48 I agree with the RN Medical Screening Exam: Yes Case reviewed; plan agreed upon as documented in EMR&OBIX.: Yes Diagnosis: GESTATIONAL HTN W/O SIGNIFICANT PROTEINURIA, THIRD TRIMESTER
== END 2022-08-16 12:48 | disposition home or self-care (01) ==
LOC: FBPOP 11:50
PROVIDERS: ATTEND Obstetrics & Gynecology
DX: O13.3 Gestational [pregnancy-induced] hypertension without significant proteinuria, third trimester (principal); Z3A.34 34 weeks gestation of pregnancy; Z87.891 Personal history of nicotine dependence
CPT/HCPCS: 59025; 99213; 96372; J0702

== ENCOUNTER 2022-09-01 12:00 | Inpatient (IN) | payer OTHER ==
[2022-09-01] MEDS ORDERED: LACTATED RINGERS 1,000 ML IV SCH (12:45)
--- NOTE | 2022-09-01 13:06 | P.HPOB ---
History of Present Illness H&P Date: 09/01/22 Chief Complaint: Severe IUGR, requesting permanent sterilization This patient is a pleasant 37-year-old 2 para 1 female estimated date of confinement 09/27/2022 estimated gestational age 36-3/7 weeks who presents to labor and delivery from the maternal- medicine office for admission and delivery. care is such that the patient developed intrauterine growth restriction at approximately 24 weeks. Patient has a history of previous with intrauterine growth restriction as well. Patient also developed at approximately 34-35 weeks gestational hypertension. She's had weekly blood work that shows no evidence of preeclampsia however patient saw maternal- medicine today for a follow-up visit and the was measuring 1674 g/3 lbs. 11 oz. which is less than the 1st percentile. Patient also had umbilical artery Dopplers that were elevated. Biophysical profile was 10 out of 10 maternal- medicine. The maternal- medicine physician, Dr. Juan, called me and requested the patient come to [facility] labor and delivery in the monitored and delivered. Patient is also advanced for maternal age and did have genetic testing that was normal this . Patient has had a previous section and desires repeat section and also was requesting permanent sterilization. Patient was given Celestone approximately 2-3 weeks ago. Review of Systems Genitourinary: Reports Menstruation: Reports amenorrhea Past Medical History Past Medical History: No Reported History Additional Past Medical History / Comment(s): Ovarian Cyst, Fibroid Tumor - Uterus History of Any Multi-Drug Resistant Organisms: None Reported Past Surgical History: Section, Orthopedic Surgery Additional Past Surgical History / Comment(s): Left Knee Past Anesthesia/Blood Transfusion Reactions: No Reported Reaction Past Psychological History: No Psychological Hx Reported Smoking Status: Current every day smoker Past Alcohol Use History: None Reported Past Drug Use History: None Reported - Past Family History Father Family Medical History: No Reported History Medications and Allergies Home Medications Medication Instructions Recorded Confirmed Type Vit No.179/Iron/Folic 1 each PO DAILY 08/15/22 09/01/22 History [ Tablet] Allergies Allergy/AdvReac Type Severity Reaction Status Date / Time No Known Allergies Allergy Verified 09/01/22 12:37 Exam Intake and Output 08/31/22 09/01/22 09/01/22 22:59 06:59 14:59 Other: Weight 72.575 kg - OBG Physical Exam Abdomen: bowel sounds normal, no diffuse tenderness, no bruit present, no guarding noted, no hepatomegaly, no splenomegaly, no mass Vulva: both: normal Vagina: normal moisture, no discharge Cervix: no lesion, no discharge Uterus: enlarged, normal contour Results labs show she is A positive, rubella immune, RPR nonreactive, hepatitis B and C were negative, HIV is nonreactive, Glucola was normal, group B strep was negative. Ultrasound today per maternal- medicine shows intrauterine 30-6/7 weeks gestation 3 lbs. 11 oz. which is less than the 1st percentile. Materni T21 was negative (46XY) Assessment and Plan Assessment: This is a pleasant 37-year-old 2 para 1 female 36-2/7 weeks gestation with severe intrauterine growth restriction, gestational hypertension, previous section requesting repeat, and also requesting permanent sterilization. Plan is to repeat preeclampsia labs, admitted for continuous monitoring, and proceed with delivery tomorrow by repeat section and will also do bilateral partial salpingectomy. Patient does understand that a tubal ligation is considered permanent however there is a failure rate of less than 5 per thousand procedures done. She also understands the surgery itself has risks including risks of infection, bleeding, possible injury to bowel, bladder, vessels, and/or other organs. All the patient's questions are answered and a written consent is obtained. I did notify the site inspector about delivery tomorrow and the patient's clinical status. (1) 36 to 37 weeks gestation of Current Visit: Yes Status: Acute Code(s): HYA7521 - SNOMED Code(s): 905582869 (2) Previous delivery affecting Current Visit: Yes Status: Acute Code(s): O34.219 - MATERNAL CARE FOR UNSP TYPE SCAR FROM PREVIOUS DEL SNOMED Code(s): 776439736 (3) Family planning Current Visit: Yes Status: Acute Code(s): Z30.09 - ENCOUNTER FOR OTH GENERAL CNSL AND ADVICE ON CONTRACEPTION SNOMED Code(s): 663239696 (4) Gestational hypertension Current Visit: Yes Status: Acute Code(s): O13.9 - GESTATIONAL HTN W/O SIGNIFICANT PROTEINURIA, UNSP TRIMESTER SNOMED Code(s): 02880001 (5) IUGR (intrauterine growth restriction) affecting care of mother Current Visit: No Status: Acute Code(s): O36.5990 - MATERN CARE FOR OTH OR SUSP POOR FETL GRTH, UNSP TRI, UNSP SNOMED Code(s): 831653569 (6) Elderly multigravida Current Visit: Yes Status: Acute Code(s): O09.529 - SUPERVISION OF ELDERLY MULTIGRAVIDA, UNSPECIFIED TRIMESTER SNOMED Code(s): 671572603
[2022-09-01 13:09] LABS: Basophils % (A) 0 %; Eosinophils # (A) 0.2 k/uL (0-0.7); Eosinophils % (A) 2 %; HCT 40.9 % (34.0-46.0); HGB 13.8 gm/dL (11.4-16.0); Lymphocytes # (A) 2.1 k/uL (1.0-4.8); Lymphocytes % (A) 21 %; MCH 31.5 pg (25.0-35.0); MCHC 33.7 g/dL (31.0-37.0); MCV 93.7 fL (80.0-100.0); Mean Platelet Volume 8.3; Monocytes # (A) 0.4 k/uL (0-1.0); Monocytes % (A) 4 %; Neutrophils # (A) 7.5 k/uL (1.3-7.7); Neutrophils % (A) 72 %; Platelet Count 270 k/uL (150-450); RBC 4.37 m/uL (3.80-5.40); RDW 13.5 % (11.5-15.5); WBC 10.4 k/uL (3.8-10.6)
[2022-09-01 13:16] LABS: ALT 23 U/L (4-34); AST 36 U/L (14-36); African American GFR (CKD) >90 (>60 ml/min/1.73 sqM); Blood Urea Nitrogen 8 mg/dL (7-17); LDH 165 U/L (120-246); Non-African American GFR(CKD) >90 (>60 ml/min/1.73 sqM)
[2022-09-01 13:28] LABS: Appearance,Urine Cloudy (Clear); Bacteria,Urine Occasional /hpf; Bilirubin,Urine Negative (Negative); Blood,Urine Negative (Negative); Color,Urine Yellow; Glucose,Urine (UA) Negative (Negative); Ketones,Urine 1+ (Negative); Leukocyte Esterase,Urine Moderate (Negative); Mucus,Urine Few /hpf; Nitrite,Urine Positive (Negative); PH, Urine 5.5 (5.0-8.0); Protein,Urine Trace (Negative); RBC,Urine 2 /hpf (0-5); Specific Gravity,Urine 1.023 (1.001-1.035); Squamous Epithelial Cell,Urine 8 /hpf (0-4); Urobilinogen,Urine <2.0 mg/dL (<2.0); WBC,Urine 24 /hpf (0-5)
[2022-09-01 13:34] LABS: Creatinine,Urine Random 176.1 mg/dL; Protein/Creatinine Ratio,Urine 0.034
--- NOTE | 2022-09-02 06:29 | P.PN ---
Progress Note - Text Progress Note Date: 09/02/22 Hospital day #2. Blood pressures remained mildly elevated, but preeclampsia labs were again normal. heart tones are category 1. Plan today is to proceed with delivery by repeat section and patient is also requesting permanent sterilization. Again, I rediscussed the surgery. Patient understands baby most likely will need to go to special care due to its small size and gestational age. All the patient's questions have been answered and a written consent is obtained.
[2022-09-02] MEDS ORDERED: CARBOPROST TROMETHAMINE 250 MCG/ML 1 ML AMP IM PRN (10:02)
[2022-09-02] MEDS ORDERED: OXYTOCIN 10 UNIT/ML 1 ML VIAL IM PRN (10:02)
[2022-09-02] MEDS ORDERED: TRANEXAMIC ACID IN NACL,ISO-OS 1,000 MG in EMPTY BAG 1 BAG IV PRN (10:02)
[2022-09-02] MEDS ORDERED: LACTATED RINGERS 1,000 ML IV SCH (10:02)
[2022-09-02] MEDS ORDERED: miSOPROStoL 200 MCG TAB PO PRN (10:02)
[2022-09-02] MEDS ORDERED: CITRIC ACID-SODIUM CITRATE 15 ML CUP PO ONE (10:02)
[2022-09-02] MEDS ORDERED: LACTATED RINGERS 1,000 ML IV ONE (10:02)
[2022-09-02] MEDS ORDERED: DEXAMETHASONE SOD PHOSPHATE 4 MG/ML 1 ML VIAL ONE (12:22)
[2022-09-02] MEDS ORDERED: KETOROLAC 15 MG/ML 1 ML VIAL ONE (12:22)
[2022-09-02] MEDS ORDERED: OXYTOCIN 30 UNITS/500 ML NS BAG IV ONE (12:22)
[2022-09-02] MEDS ORDERED: ONDANSETRON 4 MG/2 ML VIAL ONE (12:22)
[2022-09-02] MEDS ORDERED: MORPHINE SULFATE (PF) 0.3 MG/0.3 ML SYR ONE (12:22)
[2022-09-02] MEDS ORDERED: diphenhydrAMINE 50 MG/ML 1 ML VIAL IVP PRN ×2 (12:44→13:24)
[2022-09-02] MEDS ORDERED: ONDANSETRON 4 MG/2 ML VIAL IVP PRN ×2 (12:44→13:24)
[2022-09-02] MEDS ORDERED: NALOXONE 0.4 MG/ML 1 ML VIAL IV PRN ×2 (12:44→13:24)
[2022-09-02] MEDS ORDERED: ACETAMINOPHEN IV (For NPO) 1,000 MG in EMPTY BAG 1 BAG IVPB ONE (13:11)
--- NOTE | 2022-09-02 13:11 | P.OP ---
Date of Procedure: 09/02/22 Preoperative Diagnosis: #1: 36-3/7 week intrauterine . #2: Severe IUGR. #3: Previous section desires repeat. #4: Multi parity desires permanent sterilization. #5. Gestational hypertension #6: Abnormal umbilical artery Dopplers Postoperative Diagnosis: #1; same. #2: True knot with nuchal cord Procedure(s) Performed: #1: Repeat low transverse section. #2: Bilateral partial salpingectomy Anesthesia: spinal Surgeon: Dany Spring Track Fitter #1: Jackie Landaverde Estimated Blood Loss (ml): 400 Pathology: other (Placenta and bilateral fallopian tube segments) Condition: stable Disposition: floor Indications for Procedure: Please see dictated H&P for intimate details of this patient's admission. In brief summary this is a pleasant 37-year-old 2 para 1 female 36-3/7 weeks gestation who is admitted for delivery secondary to severe IUGR and abnormal umbilical artery Dopplers. Patient is requesting repeat section and also requesting permanent sterilization. Patient understands a tubal ligation is considered permanent however there is a failure rate of approximately less than 5 per thousand procedures done. She also understands that surgery itself does have risks including risks of infection, bleeding, possible injury bowel, bladder, vessels, and/or other organs. All the patient's questions are answered and a written consent is obtained. Operative Findings: This is a vigorous viable male infant Apgars 8 and 9 delivery time was 1236 hrs. Infant had a nuchal cord and a true knot. Description of Procedure: This patient has a Katz catheter placed to straight drain. She is subsequently taken to the operating room where she sat up and spinal anesthetic is administered without incident. Patient has an abdominal prep and drape. After the appropriate timeout, scalpels and taken Pfannenstiel skin incision is then incised. A second scalpel is taken down the fascia the fascia scored with scalpel. Fascial incision extended bilaterally using the German scissors. Fascia is then dissected off the rectus muscles sharply. Rectus muscles are and the peritoneum was identified and entered sharply. Peritoneal incision extended superior and inferior without difficulty. Bladder blade is then placed. Bladder peritoneum was taken sharply off the lower uterine segment. Scalpels and taken a low transverse uterine incision is then made. Using a hemostat I into the uterine cavity bluntly and there is loss of clear fluid. This incision is extended bluntly and the 's head is guided through the incision with fundal pressure. Mouth and nares are bulb suctioned. There is a nuchal cord which is reduced. We then have deliver the rest this 's body with fundal pressure. Mouth and nares are bulb suctioned. This is a vigorous viable male Apgars are 8 and 9 delivery time was 1236 hrs. Of note there is a true knot in the umbilical cord. The umbilical cords doubly clamped and cut. The is then handed off to the leader assembler who is in the room. The placenta is then manually extracted intact. Uterus is then externalized and uterine incision demarcated with Ghosh clamps. Uterine incision closed using 0 Vicryl running locked fashion 2 layers. The bladder peritoneum was then reapproximated using a 3-0 Vicryl. Excess fluid is removed from the abdomen and pelvis. Then turned my attention a left fallopian tube approximately 4 cm from the cornual insertion a small window is made to the mesial salpinx with Bovie cautery. Using a 2-0 silk I doubly ligate a 1-2 cm segment of the left fa llopian tube. Using Metzenbaum scissors the segment is excised. The tubal ends are cauterized. Excellent hemostasis is noted. Similarly I turned my attention to the right side and using a similar technique a portion of the right fallopian tube was removed. With this done, the uterus placed back into the abdomen. Final inspection shows the uterine incision and fallopian tubes to be hemostatic . Small omental adhesions are lysed. Hemostasis is assured with Bovie cautery and one suture of 2-0 silk. The parietal peritoneum was then identified and closed using 0 Vicryl running fashion. Rectus muscles are reapproximated using 0 Vicryl suture. The fascia is then closed using a running 0 PDS. Fascial incision is intact and hemostatic. Subcutaneous tissues and closed using a 3-0 Vicryl. Skin is and closed using naomi. All counts are correct 3. No complications. Infant and mother are stable in delivery room.
[2022-09-02] MEDS ORDERED: LANOLIN CREAM 5 GM TUBE TOPICAL PRN (13:24)
[2022-09-02] MEDS ORDERED: METOCLOPRAMIDE 5 MG/ML 2 ML VIAL IVP PRN (13:24)
[2022-09-02] MEDS ORDERED: OXYTOCIN 30 UNITS/500 ML NS 30 UNIT in SALINE 1 500ML.BAG IV SCH (13:24)
[2022-09-02] MEDS ORDERED: ZOLPIDEM 5 MG TAB PO PRN (13:24)
[2022-09-02] MEDS ORDERED: diphenhydrAMINE 25 MG CAP PO PRN (13:24)
[2022-09-02] MEDS: LACTATED RINGERS 1,000 ML IV SCH ×2 (13:46→22:53)
[2022-09-02] MEDS: ACETAMINOPHEN TAB 500 MG TAB PO SCH ×2 (16:16→22:53)
[2022-09-02] MEDS: KETOROLAC 15 MG/ML 1 ML VIAL IVP SCH ×2 (18:33→23:34)
[2022-09-02] MEDS: IBUPROFEN 600 MG TAB PO SCH (18:33)
[2022-09-02] MEDS: SENNOSIDES-DOCUSATE SODIUM 1 EACH TAB PO SCH (22:53)
[2022-09-03] MEDS: IBUPROFEN 600 MG TAB PO SCH ×5 (00:49→23:14)
[2022-09-03] MEDS: ACETAMINOPHEN TAB 500 MG TAB PO SCH ×4 (02:16→21:52)
[2022-09-03] MEDS: LACTATED RINGERS 1,000 ML IV SCH ×3 (02:16→23:46)
[2022-09-03] MEDS: KETOROLAC 15 MG/ML 1 ML VIAL IVP SCH ×3 (04:56→23:46)
--- NOTE | 2022-09-03 05:46 | P.PN ---
Progress Note - Text Progress Note Date: 09/03/22 ([id number]) Anesthesia Postop day 1 Subjective: Status Post section with Duramorph. Patient seen and examined. Doing well without complaint. VAS 0. No nausea vomiting or pruritus. Afebrile. Gross lower extremity strength intact. Without apparent anesthetic complications. Objective: Vital signs reviewed Heart: Regular Rate Lungs: Good chest excursion Abdomen: Appears nondistended Assessment: Status post with Duramorph postop day 1 Plan: Continue current care with your medical management. Anticipated and the Duramorph section around time today. You may see increased pain needs around this time
--- NOTE | 2022-09-03 06:59 | P.PNOBGPC ---
Subjective - Subjective Principal diagnosis: Status post repeat section with bilateral tubal POD#1 Interval history: Patient is doing well. She is ambulating. She is passing some flatus but no bowel movement yet. She is urinating without difficulty. Lochia has been moderate but is decreasing. Baby is doing well and is in the room at this time. Patient reports: Reports appetite normal, Reports voiding normally, Reports pain well controlled, Reports ambulating normally : doing well Objective - Vital Signs Latest vital signs: Vital Signs Temp Pulse Resp BP Pulse Ox 09/03/22 06:21 18 09/03/22 04:00 97.8 F 78 18 150/85 98 09/03/22 03:00 18 09/03/22 00:00 98 F 84 18 134/82 96 09/02/22 21:00 18 09/02/22 20:00 98.1 F 80 18 155/90 99 09/02/22 19:00 18 09/02/22 17:00 15 99 09/02/22 16:00 97.6 F 79 16 154/88 100 09/02/22 15:44 16 98 09/02/22 15:05 96.2 F L 80 16 156/98 100 09/02/22 14:35 90 16 157/91 99 09/02/22 14:05 77 16 149/88 98 09/02/22 13:50 82 16 146/87 98 09/02/22 13:44 16 98 09/02/22 13:35 84 16 150/78 98 09/02/22 13:24 98 09/02/22 13:20 103 H 16 143/81 97 09/02/22 13:05 97 F L 105 H 16 141/78 96 09/02/22 13:00 16 98 Intake and Output 09/02/22 09/02/22 09/03/22 14:59 22:59 06:59 Output Total 134 1230 Balance -134 -1230 Output: Urine 1000 Uretheral (Katz) 700 Output, Quantitative 134 230 Blood Loss Other: # Voids 1 - Exam Extremities: Present: normal. Absent: tenderness Abdomen: Present: normal appearance, soft (Positive bowel sounds 4). Absent: distention, tenderness Incision: Present: normal, dry, intact Uterus: Present: normal, firm. Absent: tenderness Assessment and Plan Assessment: Status post repeat low transverse section with bilateral partial salpingectomy postoperative day #1 Chronic hypertension-stable Plan: Continue postoperative and care today. Possible discharge home tomorrow if she and baby are doing well. Advance diet as tolerated. Oral pain medication.
[2022-09-03 07:31] LABS: Basophils % (A) 0 %; Eosinophils # (A) 0.1 k/uL (0-0.7); Eosinophils % (A) 0 %; HCT 36.7 % (34.0-46.0); HGB 12.4 gm/dL (11.4-16.0); Lymphocytes # (A) 2.3 k/uL (1.0-4.8); Lymphocytes % (A) 18 %; MCH 31.6 pg (25.0-35.0); MCHC 33.7 g/dL (31.0-37.0); MCV 93.8 fL (80.0-100.0); Mean Platelet Volume 8.7; Monocytes # (A) 0.7 k/uL (0-1.0); Monocytes % (A) 5 %; Neutrophils # (A) 9.4 k/uL (1.3-7.7); Neutrophils % (A) 75 %; Platelet Count 259 k/uL (150-450); RBC 3.92 m/uL (3.80-5.40); RDW 13.4 % (11.5-15.5); WBC 12.6 k/uL (3.8-10.6)
[2022-09-03] MEDS: SENNOSIDES-DOCUSATE SODIUM 1 EACH TAB PO SCH ×2 (08:11→19:42)
[2022-09-04] MEDS: ACETAMINOPHEN TAB 500 MG TAB PO SCH ×3 (04:20→15:18)
[2022-09-04] MEDS: IBUPROFEN 600 MG TAB PO SCH ×4 (06:09→23:38)
[2022-09-04] MEDS: KETOROLAC 15 MG/ML 1 ML VIAL IVP SCH (06:11)
[2022-09-04] MEDS: LACTATED RINGERS 1,000 ML IV SCH ×4 (06:11→22:20)
[2022-09-04] MEDS: SENNOSIDES-DOCUSATE SODIUM 1 EACH TAB PO SCH ×2 (08:49→21:04)
[2022-09-04] MEDS: LABETALOL 100 MG TAB PO SCH ×2 (09:27→21:05)
[2022-09-04 09:57] LABS: Basophils % (A) 1 %; Eosinophils # (A) 0.1 k/uL (0-0.7); Eosinophils % (A) 1 %; HCT 39.7 % (34.0-46.0); HGB 12.9 gm/dL (11.4-16.0); Lymphocytes # (A) 1.9 k/uL (1.0-4.8); Lymphocytes % (A) 22 %; MCH 31.5 pg (25.0-35.0); MCHC 32.6 g/dL (31.0-37.0); MCV 96.7 fL (80.0-100.0); Mean Platelet Volume 8.5; Monocytes # (A) 0.4 k/uL (0-1.0); Monocytes % (A) 5 %; Neutrophils % (A) 70 %; Platelet Count 267 k/uL (150-450); RBC 4.11 m/uL (3.80-5.40); RDW 13.4 % (11.5-15.5); WBC 8.6 k/uL (3.8-10.6)
[2022-09-04 10:04] LABS: Appearance,Urine Clear (Clear); Bilirubin,Urine Negative (Negative); Blood,Urine Negative (Negative); Color,Urine Light Yellow; Glucose,Urine (UA) Negative (Negative); Ketones,Urine Negative (Negative); Leukocyte Esterase,Urine Negative (Negative); Nitrite,Urine Negative (Negative); Protein,Urine Negative (Negative); Specific Gravity,Urine 1.011 (1.001-1.035); Urobilinogen,Urine <2.0 mg/dL (<2.0)
[2022-09-04 10:11] LABS: ALT 24 U/L (4-34); AST 38 U/L (14-36); African American GFR (CKD) >90 (>60 ml/min/1.73 sqM); Blood Urea Nitrogen 9 mg/dL (7-17); LDH 192 U/L (120-246); Non-African American GFR(CKD) >90 (>60 ml/min/1.73 sqM)
--- NOTE | 2022-09-04 11:06 | P.PNOBGPC ---
Subjective - Subjective Principal diagnosis: Status post repeat section with tubal POD #2 Interval history: Patient is doing well. She has been ambulating. She is passing flatus and bowel movement. Her pain has been fairly well-controlled with ibuprofen and Tylenol but she did notice a little bit of increased pain with ambulating. She does not want to take any narcotic if she can help it. Her blood pressures were elevated this morning in the 170s systolic. She denies any headaches or blurry vision. She does complain of swelling in her extremities. She was given 1 dose of labetalol which did bring her blood pressure down. Patient reports: Reports appetite normal, Reports voiding normally, Reports pain well controlled, Reports ambulating normally [place]: bottle feeding Objective - Vital Signs Latest vital signs: Vital Signs Temp Pulse Resp BP BP Pulse Ox 09/04/22 10:13 157/94 152/94 09/04/22 08:00 98.5 F 101 H 16 173/92 99 09/03/22 23:37 97.7 F 93 16 139/85 98 09/03/22 17:00 16 09/03/22 15:11 98.1 F 91 16 144/91 98 09/03/22 15:00 16 09/03/22 13:24 98 09/03/22 13:00 17 09/03/22 12:00 98.8 F 92 16 136/79 98 - Exam Extremities: Present: normal. Absent: tenderness Abdomen: Present: normal appearance, soft. Absent: distention, tenderness Incision: Present: normal, dry, intact. Absent: erythematous Uterus: Present: normal, firm. Absent: tenderness - Labs Labs: Abnormal Lab Results - Last 24 Hours (Table) 09/04/22 Range/Units 09:24 AST 38 H (14-36) U/L Assessment and Plan Assessment: Status post repeat low transverse section with bilateral partial salpingectomy postoperative day #2 Chronic hypertension-slightly elevated blood pressures this morning, preeclampsia labs so far are negative however PC ratio is still pending Plan: Will continue postoperative and care today. Will continue with labetalol 100 mg twice a day and continue to observe blood pressures. If her PC ratio is elevated or she continues to have elevated blood pressures into the severe range, will start magnesium sulfate seizure prophylaxis.
[2022-09-04 11:09] LABS: Creatinine,Urine Random 60.4 mg/dL; Protein/Creatinine Ratio,Urine 0.215
[2022-09-04] MEDS ORDERED: MAGNESIUM SULFATE-WATER PMX 4 GM in WATER FOR INJECTION 1 100ML.BAG IVPB ONE (12:17)
[2022-09-04] MEDS: MAGNESIUM SULFATE-WATER PMX 20 GM in WATER FOR INJECTION 1 500ML.BAG IV SCH ×2 (13:31→23:37)
[2022-09-04] MEDS ORDERED: LABETALOL 100 MG TAB PO STA (18:48)
[2022-09-05] MEDS: ACETAMINOPHEN TAB 500 MG TAB PO SCH ×5 (00:14→20:29)
[2022-09-05] MEDS: LACTATED RINGERS 1,000 ML IV SCH ×2 (06:18→20:34)
[2022-09-05] MEDS: IBUPROFEN 600 MG TAB PO SCH ×4 (06:20→23:33)
--- NOTE | 2022-09-05 06:35 | P.PNOBGPC ---
Subjective - Subjective Patient reports: Reports appetite normal, Reports voiding normally, Reports pain well controlled, Reports ambulating normally [place]: doing well Objective - Vital Signs Latest vital signs: Vital Signs Temp Pulse Resp BP BP Pulse Ox 09/05/22 04:00 97.6 F 103 H 16 147/79 98 09/05/22 00:00 97.4 F L 100 18 146/90 98 09/04/22 20:30 97.7 F 110 H 20 134/91 98 09/04/22 18:30 17 170/102 09/04/22 17:30 109 H 157/96 09/04/22 16:30 109 H 17 158/96 98 09/04/22 15:40 114 H 150/93 09/04/22 15:10 97.5 F L 109 H 17 157/93 98 09/04/22 14:40 111 H 18 151/91 98 09/04/22 14:02 120 H 16 153/92 09/04/22 13:45 114 H 169/86 09/04/22 13:30 112 H 162/98 97 09/04/22 13:15 112 H 17 170/102 97 09/04/22 13:00 101 H 16 157/97 99 09/04/22 12:14 99 09/04/22 12:00 98.1 F 96 17 168/98 157/94 09/04/22 10:13 157/94 152/94 09/04/22 08:00 98.5 F 101 H 16 173/92 99 Intake and Output 09/04/22 09/04/22 09/05/22 14:59 22:59 06:59 Intake Total 1180 500 Output Total 4100 500 Balance -2920 0 Intake: Intake, IV Titration 580 500 Amount Lactated Ringers 1,000 ml 150 @ 30 mls/hr IV .Q24H GILLES Rx#:[id number] Magnesium Sulfate-Water 200 500 Pmx 20 gm In Water For Injection 1 500ml.bag @ 2 GM/HR 50 mls/hr IV .Q10H GILLES Rx#:[id number] Magnesium Sulfate-Water 230 Pmx 4 gm In Water For Injection 1 100ml.bag @ 300 mls/hr IVPB ONCE ONE Rx#:[id number] Oral 600 Output: Urine 4100 500 Other: # Voids 1 1 # Bowel Movements 1 - Exam Lungs: bilateral: normal Chest: Normal S1, Normal S2 Extremities: Present: normal Abdomen: Present: normal appearance, soft. Absent: distention, tenderness Incision: Present: normal, erythematous, dry, intact Uterus: Present: normal, firm - Labs Labs: Abnormal Lab Results - Last 24 Hours (Table) 09/04/22 Range/Units 09:24 AST 38 H (14-36) U/L Assessment and Plan Assessment: Postoperative day #3. Patient's complaining of some discomfort lower part of her incision is otherwise without complaints. Over the weekend she was placed on magnesium sulfate and oral labetalol secondary to worsening gestational hypertension. Her pressures are better now although she does still have occasional diastolics in the 90s. Incision is intact and dry is some mild erythema the lower part of the however. She is afebrile. She is tolerating regular diet, ambulating, urinating without difficulty. Plan today is to recheck liver tests, increase her labetalol to 200 twice a day, discontinue the magnesium sulfate at 1:00 today, and I am going to place her on oral Keflex. (1) 36 to 37 weeks gestation of Current Visit: Yes Status: Acute Code(s): QBW1798 - SNOMED Code(s): 435500847 (2) Previous delivery affecting Current Visit: Yes Status: Acute Code(s): O34.219 - MATERNAL CARE FOR UNSP TYPE SCAR FROM PREVIOUS DEL SNOMED Code(s): 450601348 (3) Family planning Current Visit: Yes Status: Acute Code(s): Z30.09 - ENCOUNTER FOR OTH GENERAL CNSL AND ADVICE ON CONTRACEPTION SNOMED Code(s): 630421218 (4) Gestational hypertension Current Visit: Yes Status: Acute Code(s): O13.9 - GESTATIONAL HTN W/O SIGNIFICANT PROTEINURIA, UNSP TRIMESTER SNOMED Code(s): 31964350 (5) IUGR (intrauterine growth restriction) affecting care of mother Current Visit: No Status: Acute Code(s): O36.5990 - MATERN CARE FOR OTH OR SUSP POOR FETL GRTH, UNSP TRI, UNSP SNOMED Code(s): 047048491 (6) Elderly multigravida Current Visit: Yes Status: Acute Code(s): O09.529 - SUPERVISION OF ELDERLY MULTIGRAVIDA, UNSPECIFIED TRIMESTER SNOMED Code(s): 335271695
[2022-09-05 07:50] LABS: Albumin 3.2 g/dL (3.5-5.0); Bilirubin, Delta 0.1 mg/dL (0.0-0.2); Bilirubin,Unconjugated 0.3 mg/dL (0.0-1.1); Total Bilirubin 0.4 mg/dL (0.2-1.3)
[2022-09-05] MEDS: SENNOSIDES-DOCUSATE SODIUM 1 EACH TAB PO SCH ×2 (08:21→20:09)
[2022-09-05] MEDS: CEPHALEXIN 500 MG CAP PO SCH ×4 (08:22→20:08)
[2022-09-05] MEDS ORDERED: LABETALOL 200 MG TAB PO SCH (09:00)
[2022-09-05] MEDS: MAGNESIUM SULFATE-WATER PMX 20 GM in WATER FOR INJECTION 1 500ML.BAG IV SCH (09:38)
[2022-09-05] MEDS: LABETALOL 100 MG TAB PO SCH (20:08)
[2022-09-06] MEDS: ACETAMINOPHEN TAB 500 MG TAB PO SCH ×2 (02:33→08:58)
[2022-09-06] MEDS: IBUPROFEN 600 MG TAB PO SCH (05:39)
[2022-09-06 05:42] VITALS: PULSE 84
--- NOTE | 2022-09-06 06:14 | P.PNOBGPC ---
Subjective - Subjective Patient reports: Reports appetite normal, Reports voiding normally, Reports pain well controlled, Reports ambulating normally : doing well Objective - Vital Signs Latest vital signs: Vital Signs Temp Pulse Resp BP Pulse Ox 09/06/22 05:41 84 18 155/84 09/05/22 23:41 97.7 F 74 17 155/92 99 09/05/22 20:00 75 18 160/94 09/05/22 16:00 98.2 F 97 20 154/92 98 09/05/22 13:00 97 09/05/22 12:00 97.9 F 156 H 36 H 09/05/22 08:00 97.9 F 103 H 20 148/83 97 Intake and Output 09/05/22 09/05/22 09/06/22 14:59 22:59 06:59 Intake Total 1760.833 360 Output Total 2075 200 Balance -314.167 160 Intake: Intake, IV Titration 680.833 Amount Magnesium Sulfate-Water 680.833 Pmx 20 gm In Water For Injection 1 500ml.bag @ 2 GM/HR 50 mls/hr IV .Q10H GILLES Rx#:[id number] Oral 1080 360 Output: Urine 2075 200 Other: # Voids 1 - Exam Lungs: bilateral: normal Chest: Normal S1, Normal S2 Extremities: Present: normal Abdomen: Present: normal appearance, soft. Absent: distention, tenderness Incision: Present: normal, dry, intact Uterus: Present: normal, firm - Labs Labs: Abnormal Lab Results - Last 24 Hours (Table) 09/05/22 Range/Units 06:43 AST 37 H (14-36) U/L Alkaline Phosphatase 169 H (38-126) U/L Total Protein 6.0 L (6.3-8.2) g/dL Albumin 3.2 L (3.5-5.0) g/dL Assessment and Plan Assessment: Postoperative day #4. Patient is resting without new complaints. Labetalol has been increased to 300 mg by mouth twice a day. She is still asymptomatic her blood pressures remain mildly elevated. I discussed staying at the hospital 1 more day for continued watching her blood pressures but she wishes to go home. Patient's felt to be compliant will follow up in the office for blood pressure checks. I do feel that she is stable for discharge home for outpatient management. Incisions intact and dry. Patient is tolerating regular diet, ambulating, urinating without difficulty. Patient's felt be stable for discharge home follow up in the office 7 days. (1) 36 to 37 weeks gestation of Current Visit: Yes Status: Acute Code(s): FXH9000 - SNOMED Code(s): 808256810 (2) Previous delivery affecting Current Visit: Yes Status: Acute Code(s): O34.219 - MATERNAL CARE FOR UNSP TYPE SCAR FROM PREVIOUS DEL SNOMED Code(s): 046661482 (3) Family planning Current Visit: Yes Status: Acute Code(s): Z30.09 - ENCOUNTER FOR OTH GENERAL CNSL AND ADVICE ON CONTRACEPTION SNOMED Code(s): 270949968 (4) Gestational hypertension Current Visit: Yes Status: Acute Code(s): O13.9 - GESTATIONAL HTN W/O SIGNIFICANT PROTEINURIA, UNSP TRIMESTER SNOMED Code(s): 87554346 (5) IUGR (intrauterine growth restriction) affecting care of mother Current Visit: No Status: Acute Code(s): O36.5990 - MATERN CARE FOR OTH OR SUSP POOR FETL GRTH, UNSP TRI, UNSP SNOMED Code(s): 260442107 (6) Elderly multigravida Current Visit: Yes Status: Acute Code(s): O09.529 - SUPERVISION OF ELDERLY MULTIGRAVIDA, UNSPECIFIED TRIMESTER SNOMED Code(s): 827482642
--- NOTE | 2022-09-06 06:19 | P.DS ---
Providers Date of admission: 09/01/22 12:31 Expected date of discharge: 09/06/22 Attending physician: Dany Spring Primary care physician: Stated None - Discharge Diagnosis(es) (1) 36 to 37 weeks gestation of Current Visit: Yes Status: Acute (2) Previous delivery affecting Current Visit: Yes Status: Acute (3) Family planning Current Visit: Yes Status: Acute (4) Gestational hypertension Current Visit: Yes Status: Acute (5) IUGR (intrauterine growth restriction) affecting care of mother Current Visit: No Status: Acute (6) Elderly multigravida Current Visit: Yes Status: Acute Hospital Course: Please see dictated H&P for intimate details of this patient's admission. Brief summary this is a pleasant 37-year-old 2 para 1 female 36-3/7 weeks gestation admitted for repeat section and tubal ligation secondary to severe IUGR, and gestational hypertension. Patient undergoes above-named surgery. Postoperative patient does well however does develop hypertension and requires magnesium sulfate therapy and oral antihypertensives. Patient is no evidence of preeclampsia and this is thought to be gestational hypertension. Postoperative 4 patient's felt be stable for discharge home for outpatient management. Follow-up with me. Patient given strict instructions call should any concerns headaches, uncontrolled hypertension. Procedures: Repeat low transverse section and bilateral partial salpingectomy Patient Condition at Discharge: Good Plan - Discharge Summary New Discharge Prescriptions: New Labetalol [Trandate] 300 mg PO BID #60 tab Ibuprofen [Motrin] 600 mg PO Q6H #40 tab oxyCODONE HCL [OxyIR] 5 mg PO Q4HR PRN #18 tab PRN Reason: Pain Scale 4 - 6 No Action Vit No.179/Iron/Folic [ Tablet] 1 each PO DAILY Discharge Medication List Vit No.179/Iron/Folic [ Tablet] 1 each PO DAILY 08/15/22 [History] Ibuprofen [Motrin] 600 mg PO Q6H #40 tab 09/06/22 [Rx] Labetalol [Trandate] 300 mg PO BID #60 tab 09/06/22 [Rx] oxyCODONE HCL [OxyIR] 5 mg PO Q4HR PRN #18 tab 09/06/22 [Rx] Follow up Appointment(s)/Referral(s): Dany Spring MD [STAFF PHYSICIAN] - 10/10/22 10:30 am (Post Op appointment 09-13-2022 at 9:00) Patient Instructions/Handouts: (DC), Hypertension During (DC) Activity/Diet/Wound Care/Special Instructions: No strenuous activities or heavy lifting for 6 weeks. Please call if any fever, chills, excessive vaginal bleeding, and/or abdominal pain. Discharge Disposition: HOME SELF-CARE
[2022-09-06 07:59] VITALS: BP 151/87; RESP 16; TEMP 98.3
[2022-09-06] MEDS: LABETALOL 100 MG TAB PO SCH (08:58)
[2022-09-06] MEDS: CEPHALEXIN 500 MG CAP PO SCH (08:58)
[2022-09-06] MEDS: SENNOSIDES-DOCUSATE SODIUM 1 EACH TAB PO SCH (10:10)
== END 2022-09-06 10:20 | disposition home or self-care (01) | DRG 785 ==
LOC: 4FBP 12:31
PROVIDERS: ADMIT Obstetrics & Gynecology; ATTEND Obstetrics & Gynecology
PROC: 0UB70ZZ Excision of Bilateral Fallopian Tubes, Open Approach (ICD-10-PCS; 2022-09-02)
PROC: BU46ZZZ Ultrasonography of Uterus (ICD-10-PCS; 2022-09-02)
PROC: 10D00Z1 Extraction of Products of Conception, Low, Open Approach (ICD-10-PCS; principal; 2022-09-02 12:32)
DX: O34.211 Maternal care for low transverse scar from previous cesarean delivery (principal); O69.81X0 Labor and delivery complicated by cord around neck, without compression, not applicable or unspecified; O36.5930 Maternal care for other known or suspected poor fetal growth, third trimester, not applicable or unspecified; O99.334 Smoking (tobacco) complicating childbirth; F17.210 Nicotine dependence, cigarettes, uncomplicated; O13.4 Gestational [pregnancy-induced] hypertension without significant proteinuria, complicating childbirth; O12.14 Gestational proteinuria, complicating childbirth; Z3A.37 37 weeks gestation of pregnancy; Z30.2 Encounter for sterilization; Z37.0 Single live birth
CPT/HCPCS: 80076; 81001; 81003; 82565; 82570; 83615; 84156; 84450; 84460; 84520; 84550; 85025; 86850; 86900; 86901; 88302; 88307